=== PATIENT | female | born 1995 | race Two or more races ===

== ENCOUNTER 2017-03-30 21:39 | Emergency (ER) | payer OTHER ==
[~2017-03-30] VITALS: Ht 160 cm; Wt 63.0 kg
[2017-03-30 21:47] VITALS: BP 121/66
[2017-03-31] MEDS ORDERED: ACETAMINOPHEN 500 MG TAB PO ONE (00:30)
== END 2017-03-31 00:45 | disposition home or self-care (01) ==
LOC: ER 21:39
DX: O26.892 Other specified pregnancy related conditions, second trimester (principal); S96.912A Strain of unspecified muscle and tendon at ankle and foot level, left foot, initial encounter; X58.XXXA Exposure to other specified factors, initial encounter; Y93.89 Activity, other specified; Y99.8 Other external cause status; Y92.89 Other specified places as the place of occurrence of the external cause
CPT/HCPCS: 99282; L3260